=== PATIENT | female | born 1990 | race Two or more races ===

== ENCOUNTER 2022-07-13 09:50 | Observation (INO) | payer SELFPAY ==
[2022-07-13] MEDS ORDERED: PREN1TAB71 OR (11:37)
== END 2022-07-13 11:55 | disposition home or self-care (01) ==
LOC: LDRP 09:50 → UNDOADMOB 09:50 → LDRP 10:23 → UNDODISOB 11:55
PROVIDERS: ADMIT Obstetrics & Gynecology; ATTEND Obstetrics & Gynecology
DX: O62.9 Abnormality of forces of labor, unspecified (principal); Z3A.38 38 weeks gestation of pregnancy
CPT/HCPCS: 59025; 81002; 94760; G0378

== ENCOUNTER 2022-07-19 04:56 | Observation (INO) | payer MEDICAID, OTHER ==
[~2022-07-19] VITALS: Ht 162.6 cm; Wt 87.5 kg
[~2022-07-19 04:56] MED LIST: PREN1TAB71 OR
[2022-07-19 07:38] LABS: Urine WBC None Seen /hpf (0 - 5)
[2022-07-19 07:53] LABS: Urine Bacteria FEW /hpf (None Seen); Urine Blood Negative /uL (Negative); Urine Specific Gravity 1.003 (1.001-1.035)
[2022-07-19] MEDS ORDERED: LACTATED RINGER'S 1,000 ML IV ONE (09:45)
== END 2022-07-19 11:14 | disposition home or self-care (01) ==
LOC: LDRP 04:56
PROVIDERS: ADMIT Obstetrics & Gynecology; ATTEND Obstetrics & Gynecology
DX: O62.9 Abnormality of forces of labor, unspecified (principal); Z3A.38 38 weeks gestation of pregnancy
CPT/HCPCS: 59025; 81001; 81002; G0378; 96365; 96366

== ENCOUNTER 2022-07-19 21:51 | Inpatient (IN) | payer SELFPAY ==
[~2022-07-19] VITALS: Ht 162.6 cm; Wt 87.5 kg
[2022-07-19] MEDS ORDERED: CARBOPROST TROMETHAMINE 250 MCG/1ML VIAL IM PRN (22:45)
[2022-07-19] MEDS ORDERED: miSOPROStol 100 mcg TAB SL PRN (22:45)
[2022-07-19] MEDS ORDERED: METHYLERGONOVINE MALEATE 0.2 MG/ML AMP IM PRN (22:45)
[2022-07-19] MEDS ORDERED: WITCH HAZEL-GLYCERIN PAD TOP PRN (22:45)
[2022-07-19] MEDS ORDERED: OXYTOCIN 10UNIT/ML 1ML VIAL IM PRN (22:45)
[2022-07-19] MEDS ORDERED: DERMOPLAST 60ML BOTTLE TOP PRN (22:45)
[2022-07-19] MEDS ORDERED: PHISODERM TOP SOLN 240ML BTL TOP PRN (22:45)
[2022-07-19] MEDS ORDERED: LACT. RINGER'S W OXYTOCIN 20UNITS/1000 ML IV PRN (22:45)
[2022-07-19] MEDS ORDERED: TRANEXAMIC ACID 1,000 MG in SODIUM CHL 0.9% 100 ML IV PRN (22:45)
[2022-07-19] MEDS ORDERED: LIDOCAINE 2%HCL (LOCAL ANESTH.) INJ 20ML MDV IJ PRN (22:45)
[2022-07-19] MEDS ORDERED: ACETAMINOPHEN 325 MG TAB PO PRN (22:45)
[2022-07-19] MEDS ORDERED: LACTATED RINGER'S 1,000 ML IV SCH (22:45)
[2022-07-19] MEDS ORDERED: PROMETHAZINE HCL 25 MG/ML 1ML IV PRN (22:45)
[2022-07-19] MEDS ORDERED: diphenhdrAMINE HCL 50 MG/1 ML VL IV PRN (22:45)
[2022-07-19] MEDS ORDERED: BUTORPHANOL TARTRATE 2 MG/1 ML VIAL IV PRN ×2 (22:45)
[2022-07-19] MEDS ORDERED: ONDANSETRON HCL 4 MG/2 ML VIAL IV PRN (22:45)
[2022-07-19] MEDS ORDERED: DIPHENOXYLATE W/ATROPINE 2.5 MG TAB PO PRN (22:45)
[2022-07-19 23:23] LABS: Basophils # (auto) 0 10 ^3/uL (0-0.2); Basophils % (auto) 0.2 % (0.0-2.0); Eosinophils # (auto) 0.1 10 ^3/uL (0-0.8); Eosinophils % (auto) 1.1 % (0.0-7.0); Hematocrit 37.7 % (36.0-46.0); Hemoglobin 12.2 g/dL (12.2-16.2); Lymphocytes # (auto) 2.6 10 ^3/uL (0.4-5.4); Lymphocytes % (auto) 24.1 % (10.0-50.0); Mean Corpuscular Hemoglobin 28.8 pg (28.0-32.0); Mean Corpuscular Hgb Conc. 32.5 g/dL (32.0-36.0); Mean Corpuscular Volume 88.8 fL (80.0-100.0); Monocytes # (auto) 0.8 10 ^3/uL (0-1.3); Monocytes % (auto) 7.3 % (0.0-12.0); Neutrophils # (auto) 7.2 10 ^3/uL (1.6-8.6); Neutrophils % (auto) 67.3 % (37.0-80.0); Red Blood Cells 4.24 10^6/uL (4.0-5.20); Red Cell Distribution Width 15.2 % (11.8-14.3); White Blood Cell 10.8 10^3/uL (4.4-10.8)
[2022-07-19] MEDS ORDERED: PENICILLIN G POTASSIUM 2,500,000 UNITS in D5W 5% 50 ML IV SCH (23:30)
[2022-07-19] MEDS ORDERED: PENICILLIN G POT 5MIL/D5 50ML 50 ML IV ONE (23:30)
[2022-07-19 23:42] LABS: Albumin 2.7 g/dL (3.4-5.0); BUN/Creatinine Ratio 12.1; Calcium 8.7 mg/dL (8.5-10.1); Potassium 3.7 mmol/L (3.5-5.1)
[2022-07-19 23:43] LABS: INR 0.95 (0.9-1.15); Partial Thromboplastin Time 27.1 sec (24.6-33.4)
[2022-07-19 23:45] LABS: Bilirubin, Total 0.4 mg/dL (0.2-1.0); Total Protein 6.3 g/dL (6.4-8.2)
[2022-07-20] LABS: Urine Bacteria NONE SEEN /hpf (None Seen); Urine Blood Negative /uL (Negative); Urine Mucus FEW (None Seen); Urine Specific Gravity 1.018 (1.001-1.035); Urine WBC 1 /hpf (0 - 5)
[2022-07-20] MEDS ORDERED: LACT. RINGERS/OXYTOCIN 20UNITS 500 ML IV ONE ×2 (00:15→00:45)
[2022-07-20] MEDS ORDERED: TERBUTALINE SULFATE 1 MG/ML 1ML VIAL SC PRN (00:15)
[2022-07-20 00:21] LABS: Alcohol, Urine < 3.0 mg/dL (0-10); Amphetamine Screen, Urine NEGATIVE (NEGATIVE); Barbiturate Scree,Urine NEGATIVE (NEGATIVE); Benzodiazephine Screen, Urine NEGATIVE (NEGATIVE); Cannabinoid Screen, Urine NEGATIVE (NEGATIVE); Cocaine Screen, Urine NEGATIVE (NEGATIVE); Opiate Scree,Urine NEGATIVE (NEGATIVE); Phencyclidine Screen, Urine NEGATIVE (NEGATIVE)
[2022-07-20] MEDS ORDERED: PROMETHAZINE HCL 25 MG/ML 1ML IV PRN (00:45)
[2022-07-20] MEDS ORDERED: PROMETHAZINE HCL 25 MG/ML 1ML IM ONE (01:00)
[2022-07-20] MEDS ORDERED: ROPIVACAINE HCL 200 ML EPI SCH (01:15)
[2022-07-20] MEDS ORDERED: LACTATED RINGER'S 1,000 ML IV ONE (01:15)
[2022-07-20] MEDS ORDERED: NALOXONE HCL 0.4 MG/ML VIAL IV ONE (01:15)
[2022-07-20] MEDS ORDERED: LIDOCAINE HCL 2 %PF INJ 10ML AMP IJ ONE (01:15)
[2022-07-20] MEDS ORDERED: ePHEDrine SULFATE 50 MG/ML AMP IV ONE (01:15)
[2022-07-20] MEDS ORDERED: fentaNYL CITRATE 100 MCG/2 ML VL IV ONE (01:15)
[2022-07-20] MEDS ORDERED: Lidocaine W-Epinephrine 1.5%-1:200,000 INJ 10ml Vial ONE (02:05)
[2022-07-20] MEDS ORDERED: LACT. RINGERS/OXYTOCIN 20UNITS 1,000 ML IV SCH (04:15)
[2022-07-20] MEDS ORDERED: ACETAMINOPHEN 325 MG TAB PO PRN (06:30)
[2022-07-20] MEDS ORDERED: IBUPROFEN 600 MG TAB PO PRN (06:30)
[2022-07-20 08:57] VITALS: BP 113/58
[2022-07-20 10:30] VITALS: BP 112/62
[2022-07-20 15:05] VITALS: BP 114/74
[2022-07-20 19:30] VITALS: BP 107/64
[2022-07-20] MEDS ORDERED: DOCUSATE SOD 100 MG CAP PO SCH (22:00)
[2022-07-20 23:00] VITALS: BP 118/69
[2022-07-21 03:00] VITALS: BP 112/71
[2022-07-21 06:25] LABS: Basophils # (auto) 0 10 ^3/uL (0-0.2); Basophils % (auto) 0.4 % (0.0-2.0); Eosinophils # (auto) 0.2 10 ^3/uL (0-0.8); Eosinophils % (auto) 1.6 % (0.0-7.0); Hematocrit 32.9 % (36.0-46.0); Lymphocytes # (auto) 3.6 10 ^3/uL (0.4-5.4); Lymphocytes % (auto) 35.8 % (10.0-50.0); Mean Corpuscular Hemoglobin 29.9 pg (28.0-32.0); Mean Corpuscular Hgb Conc. 33.4 g/dL (32.0-36.0); Mean Corpuscular Volume 89.3 fL (80.0-100.0); Monocytes # (auto) 0.7 10 ^3/uL (0-1.3); Monocytes % (auto) 7.4 % (0.0-12.0); Neutrophils # (auto) 5.5 10 ^3/uL (1.6-8.6); Neutrophils % (auto) 54.8 % (37.0-80.0); Nucleated Red Blood Cells % 0.1 %; Red Blood Cells 3.68 10^6/uL (4.0-5.20); Red Cell Distribution Width 15.4 % (11.8-14.3)
[2022-07-21 06:50] VITALS: BP 114/70
[2022-07-21 08:06] LABS: RPR Non Reactive (Non Reactive)
[2022-07-21 11:00] VITALS: BP 118/73
== END 2022-07-21 11:20 | disposition home or self-care (01) | DRG 807 ==
LOC: LDRP 21:51 → OBSVTOIN 22:40 → LDRP 22:50
PROVIDERS: ADMIT Obstetrics & Gynecology; ATTEND Obstetrics & Gynecology
PROC: 10E0XZZ Delivery of Products of Conception, External Approach (ICD-10-PCS; principal; 2022-07-20)
PROC: 10907ZC Drainage of Amniotic Fluid, Therapeutic from Products of Conception, Via Natural or Artificial Opening (ICD-10-PCS; 2022-07-20)
PROC: 3E0R3BZ Introduction of Anesthetic Agent into Spinal Canal, Percutaneous Approach (ICD-10-PCS; 2022-07-20)
PROC: 00HU33Z Insertion of Infusion Device into Spinal Canal, Percutaneous Approach (ICD-10-PCS; 2022-07-20)
DX: O69.81X0 Labor and delivery complicated by cord around neck, without compression, not applicable or unspecified (principal); Z37.0 Single live birth; Z3A.38 38 weeks gestation of pregnancy; O70.0 First degree perineal laceration during delivery; Z20.822 Contact with and (suspected) exposure to COVID-19
CPT/HCPCS: 36415; 59025; 59409; 62282; 80053; 80307; 81001; 81002; 85025; 85610; 85730; 86592; 86850; 86900; 86901; 87426; 94760; 94762; 96360; 96361; 96365; 96372; 96374; G0378; J2540; J2590; J7060